=== PATIENT | female | born 1970 | race Caucasian/White ===

== ENCOUNTER → 2022-09-26 09:04 | Outpatient (CLI) | payer BC, SELFPAY ==
--- NOTE | 2022-09-26 09:11 | MR_ITS ---
FINAL REPORT CLINICAL HISTORY: PAIN OF RIGHT KNEE JOINT. PATIENT FELL 3 WEEKS AGO. MEDIAL SIDED KNEE PAIN. COMPARISON: None FINDINGS: Multi planar MR imaging was performed of the right knee. The anterior and posterior cruciate ligaments are intact. The quadriceps and patellar tendons are intact. There is mild increased signal in the posterior horn of the medial meniscus, favor intrasubstance degenerative signal. The lateral meniscus is intact. The medial and lateral collateral ligaments appear intact. The medial and lateral retinacula appear intact. There is no evidence of bone marrow edema or osteochondral defect. No evidence of soft tissue inflammatory reaction. A trace joint effusion is present. IMPRESSION: Mild increased signal posterior horn of medial meniscus, favor intrasubstance degenerative signal. No definite tear is seen. Reviewed, Interpreted and Dictated by Joshua Eastman MD Transcribed by Lori De La Torre Authenticated and . [facility]
== END ==
LOC: RAD 09:04
PROVIDERS: PCP Nurse Practitioner Family; Visit Provider Nurse Practitioner Family
DX: M25.561 Pain in right knee (principal)
CPT/HCPCS: 73721

== ENCOUNTER 2022-11-08 16:30 | Emergency (ER) | payer BC, SELFPAY ==
[2022-11-08] VITALS (11 sets, daily range): BP systolic 108–119; BP diastolic 62–72; PULSE 62–75; RESP 12–20; TEMP 36.7–36.9; O2SAT 96–100; BMI 32.4
--- NOTE | 2022-11-08 16:32 | ECG_ITS ---
APPROVED REPORT Exam: Resting ECG HR:70 bpm ECG Measurements Heart Rate 70 AXES DC 160 P 9 QRSd 102 QRS 34 QT 408 T 20 QTc 428 Conclusion SINUS RHYTHM LOW QRS VOLTAGE IN PRECORDIAL LEADS [QRS DEFLECTION < 1.0 mV IN CHEST LEADS] BORDERLINE ECG UNCONFIRMED REPORT Electronically signed by : Alejo Ortiz MD 11/09/2022 08:48:20
--- NOTE | 2022-11-08 16:42 | XR_ITS ---
PROCEDURE INFORMATION: Exam: XR Chest Exam date and time: 11/08/2022 5:01 PM Age: 52 years old Clinical indication: Sternal or substernal pain; Additional info: Chest pain TECHNIQUE: Imaging protocol: Radiologic exam of the chest. Views: 1 view. COMPARISON: No relevant prior studies available. FINDINGS: Limitations: The patient is wearing a bra which minimally limits the study. Lungs: No evidence of acute pulmonary disease or infiltrates; lung garcia appear clear. Pleural spaces: No evidence of pleural effusion, pneumothorax, or pleural thickening in the visualized pleural spaces. Heart/Mediastinum: No evidence of mediastinal widening or cardiac silhouette enlargement; the mediastinum and heart appear within normal limits for contour and size. Diaphragm: There is elevation of the right hemidiaphragm. Bones/joints: No evidence of acute osseous abnormalities within the visualized portions of the thoracic spine and ribs. Osseous structures appear appropriate for patient age. IMPRESSION: No dense parenchymal consolidation, pleural effusion, or pneumothorax.
[2022-11-08 16:55] LABS: Basophils % 0.4 % (0.1-2.0); Eosinophils # 0.1 K/mm3 (0.0-0.4); Eosinophils % 1.5 % (0.1-12.0); Lymphocytes % 29.6 % (10-50); Mean Corpuscular HGB Conc 32.5 g/dL (31.8-35.4); Mean Corpuscular Hemoglobin 27.8 pg (27.0-31.2); Mean Corpuscular Volume 85.5 fl (81-99); Mean Platelet Volume 8.3 fl (7.4-10.4); Monocytes # 0.3 K/mm3 (0.1-1.0); Monocytes % 4.6 % (1.7-9.3); Neutrophils # 4.2 K/mm3 (1.8-7.8); Neutrophils % 63.9 % (37.0-80.0); Platelet Count 272 K/mm3 (142-424); Red Blood Count 4.68 M/mm3 (4.20-5.40); Red Cell Distribution Width 14.5 % (11.5-17.5); White Blood Count 6.6 K/mm3 (4.8-10.8)
--- NOTE | 2022-11-08 16:58 | HMH.EDGENADL ---
Discharge Plan Disposition Patient Disposition: Home, Self-Care Condition: Good Prescriptions Prescriptions: New nitroglycerin 0.4 mg tablet, sublingual 0.4 mg sublingual Q5M PRN (Reason: chest pain) Qty: 30 0RF Rx Instructions: do not exceed 3 doses per episode Referrals Follow up/Referrals: Provider,Referral, MD [Primary Care Provider] - See instructions Activity Restrictions/Add. Instructions Additional Instructions/Restrictions: Please return to the emergency department if you experience any new or worsening symptoms. Clinical Impressions Clinical Impression: Chest pain Qualifiers: Chest pain type: chest pain due to myocardial ischemia Ischemic chest pain type: stable angina pectoris Qualified Code(s): I20.89 - Other forms of angina pectoris Discharge ED Provider: Isrrael Lowry Adult HPI General Chief complaint: Chest Pain Stated complaint: Chest Pain Time Seen by Provider: 11/08/22 16:41 Mode of Arrival: Ambulatory Source of Information: Patient Limitations: No Limitations Description of Symptoms (Recalled from ER Triage Doc. by RN): pt to ed c/o left sided chest pain. pt reports having a stress test completed this morning. pt denies n/v. pt denies cardiac hx. History of Present Illness HPI narrative: The patient presents with a chief complaint of intermittent chest discomfort for approximately one month. The sensation is located in the middle of the chest and occasionally radiates to the right arm. The patient reports that the discomfort is off and on throughout the day and has been more prominent today. The patient denies any specific triggers for the chest discomfort but notes that it occurs while sitting. They have experienced shortness of breath and cough only after exertion. The patient also reports occasional ankle swelling at the end of the day, which they attribute to being on their feet all day. The patient has no known medical problems and is not currently taking any medications. They deny any history of heart issues and do not smoke. The patient had a stress test this morning, which was scheduled after a recent visit to the ER for chest pain. During that visit, the patient's EKG and labs were normal, and the chest pain resolved after administration of two nitroglycerin tablets. The patient has not taken any nitroglycerin today. They also have an echocardiogram scheduled with a invasive cardiovascular technologist. Related Data Previous Rx's Medication Instructions Recorded nitroglycerin 0.4 mg sublingual 0.4 mg sublingual Q5M PRN chest 11/08/22 tablet pain #30 tabs Allergies Allergy/AdvReac Type Severity Reaction Status Date / Time No Known Allergies Allergy Verified 11/08/22 17:17 [facility] Disclaimer: The information contained in this section may have been updated after the patient was seen, as this information can be updated by other users. Social History Smoking Status: Never smoker alcohol intake: current current occupational status: other Travel in the last 8 weeks: None ROS Obtained: Yes Systems reviewed as appropriate & no additional complaints except as documented Physical Exam General General appearance: alert and in no apparent distress Neck Neck exam: Present normal inspection and full ROM Chest Chest inspection: Present normal inspection and symmetric chest wall rise Respiratory Respiratory exam: Absent respiratory distress Cardiovascular Cardiovascular exam: Present regular rate and normal rhythm Neurological Exam Neurological exam: Present alert and oriented X3 Medical Decision Making Medical Records Medical records reviewed: Yes I reviewed the patient's medical records. Ulises Inquiry Pt receiving controlled substance: No Ulises was queried for this patient: No Vital Signs: 11/08/22 16:45 11/08/22 16:45 11/08/22 17:00 Temperature 98.4 F Temperature Source Oral Pulse Rate 62 75 Pulse Rate [Left Radial] 64 Respiratory Rate 20 13
[2022-11-08 17:06] LABS: Alanine Aminotransferase 19 U/L (12-78); Albumin Level 4.3 g/dl (3.5-5.0); Albumin/Globulin Ratio 1.2 (1.1-1.8); Alkaline Phosphatase 142 U/L (38-126); Anion Gap 11.8 mEq/L (5-15); Aspartate Amino Transferase 23 U/L (14-36); Bilirubin,Total 0.2 mg/dl (0.2-1.3); Blood Urea Nitrogen 14 mg/dl (7-17); Calcium 9.2 mg/dl (8.4-10.2); Carbon Dioxide 33 mmol/L (22.0-30.0); Chloride 100 mmol/L (98-107); Creatinine Clearance Estimated 135 mL/min (50-200); Estimated Glomerular Filt Rate 88 ml/min (>60); GFR (African American) 106 ML/MIN (>60); Globulin 3.5 g/dL (1.3-3.2); Glucose 92 mg/dl (74-100); Potassium 3.8 mmoL/L (3.5-5.1); Sodium 141 mmol/L (136-145); Total Protein,Serum 7.8 g/dl (6.3-8.2)
[2022-11-08 17:39] LABS: Troponin I < 0.01 ng/ml (0.00-0.034)
[2022-11-08 19:41] LABS: Troponin I < 0.01 ng/ml (0.00-0.034)
== END 2022-11-08 20:29 | disposition home or self-care (01) ==
PROVIDERS: Emergency Provider Emergency Medicine; Referring Provider Internal Medicine
DX: I20.89 Other forms of angina pectoris (principal); R07.89 Other chest pain
CPT/HCPCS: 71045; 80053; 84484; 85025; 93005; 99285

== ENCOUNTER 2022-11-09 14:51 | Observation (INO) | payer BC, SELFPAY ==
--- NOTE | 2022-11-09 14:56 | HMH.PHAINT1 ---
Pharmacy Intervention Comments: MEDICATION RECONCILIATION COMPLETED ON PATIENT USING EXTERNAL FILL HISTORY FROM PHARMACY AND LIST FROM ED VISIT YESTERDAY. -SACHA JAIMED
--- NOTE | 2022-11-09 15:05 | PC.NURSE ---
patient walked to floor from admissions
[2022-11-09 15:07] VITALS: BP 143/78; PULSE 66; RESP 18; TEMP 36.9; O2SAT 98; BMI 36.3
--- NOTE | 2022-11-09 15:19 | EXP.HP ---
History of Present Illness *Admission Date: 11/09/22 *Reason for visit:: Chest pressure *History of present illness: Mrs. Lorenzo is a 52-year-old female with significant past family history of coronary artery disease before the age of 50. She presented to cardiology clinic because of onset of chest pressure in the left chest radiating down her left arm. States it is worse with exertion and better with rest. Denies any stabbing or radiation to her back. Has some shortness of breath associated with activity and with her pain. Denies any dizziness or syncope. States the pressure has been getting worse over the past month but most prominent the past few days. Was seen in cardiology clinic yesterday and referred to the ER because of the character of her pain. Work-up in the ER did not show detectable troponin. Patient was discharged home. She had a stress test obtained in outside hospital on Monday but the result is not back from that at this time. Presentation today to the cardiology clinic for persistent pain, significant concern for unstable angina given her family history and character of symptoms. Medicine was consulted for direct admission and further eval in light of patient's symptoms. Complicating her care is a reported IV contrast allergy. She has had hives previously with CT contrast but no shortness of breath, hypotension, anaphylaxis. Stable on room air on evaluation after arriving to the floor. Has any nausea or vomiting. On no home medications. [facility] Disclaimer: The information contained in this section may have been updated after the patient was seen, as this information can be updated by other users. Medical History Abnormal electrocardiogram [ECG] [EKG] Allergic to IV contrast Family history of ischemic heart disease before age 50 Surgical History History of section History of colonoscopy History of hysterectomy Family History Family history of hypertension Mother Father Family history of diabetes mellitus type II Mother Father Social History Smoking Status: Never smoker alcohol intake: current current occupational status: employed and other Travel in the last 8 weeks: None Review of Systems Review of Systems Review of systems (narrative): 14 point review of systems performed, pertinent positives and negatives as per HPI Meds Home Medications and Allergies Home Medications Medication Instructions Recorded Confirmed Type nitroglycerin 0.4 mg sublingual 0.4 mg sublingual Q5MINP PRN chest 11/09/22 11/09/22 History tablet pain New Prescriptions to Start Prescriptions: Allergies Allergy/AdvReac Type Severity Reaction Status Date / Time IV contrast Allergy Severe Hives Uncoded 11/09/22 14:13 PCN Allergy Severe Hives Uncoded 11/09/22 14:13 Exam Data for Last 24 hours Vital signs and Labs for Last 24 Hours: Temp Pulse Resp BP Pulse Ox O2 Del Method 98.4 F 66 18 143/78 H 98 Room Air 11/09/22 15:07 11/09/22 15:07 11/09/22 15:07 11/09/22 15:07 11/09/22 15:07 11/09/22 15:07 I & O for Last 24 hours: Intake & Output 11/06/22 11/07/22 11/08/22 11/09/22 23:59 23:59 23:59 23:59 Weight 102.087 kg Constitutional Constitutional: no acute distress, obese and cooperative *Routine HEENT Exam Head: Present normocephalic Eye: Present EOMI and PERRL ENT: Present mucous membranes moist *Routine Neck Exam Neck: Present supple; Absent lymphadenopathy Routine Chest/Breast/Axilla Exam Chest wall: Present tenderness (Midsternum on palpation; different from reported chest pressure) *Routine Respiratory Exam Respiratory: Present CTA bilaterally *Routine Cardiovascular Exam Cardiovascular: Present RRR *Routine Abdominal Exam Abdominal: Presen
[2022-11-09 15:47] VITALS: PULSE 60
[2022-11-09 16:00] VITALS: PULSE 65
[2022-11-09 16:29] LABS: Hemoglobin A1C 5.1 % (4.0-6.0)
[2022-11-09 16:42] LABS: Thyroid Stimulating Hormone 0.89 uIU/mL (0.465-4.68)
[2022-11-09 18:26] LABS: Troponin I < 0.01 ng/ml (0.00-0.034)
--- NOTE | 2022-11-09 18:44 | PC.NURSE ---
pt pleasant. NSR on tele, npo after midnight for heart cath in am. pt has no needs at this time.
[2022-11-09 19:41] VITALS: BP 118/65; PULSE 68; RESP 18; TEMP 36.9; O2SAT 95
[2022-11-09 20:00] VITALS: PULSE 80
[2022-11-10] VITALS (16 sets, daily range): BP systolic 106–140; BP diastolic 57–82; PULSE 57–92; RESP 16–20; TEMP 36.4–37.3; O2SAT 90–98; BMI 36.1
--- NOTE | 2022-11-10 05:16 | PC.NURSE ---
Patient has had a good night. No other issue noted by patient. Has not complained of chest pain or SOB through the night. No other issues noted
[2022-11-10 06:24] LABS: Basophils % 0.2 % (0.1-2.0); Eosinophils % 0.3 % (0.1-12.0); Hematocrit 42.4 % (37.0-47.0); Hemoglobin 13.7 g/dL (12.2-16.2); Lymphocytes # 1.7 K/mm3 (0.7-4.5); Lymphocytes % 17.2 % (10-50); Mean Corpuscular HGB Conc 32.5 g/dL (31.8-35.4); Mean Corpuscular Hemoglobin 27.5 pg (27.0-31.2); Mean Corpuscular Volume 84.6 fl (81-99); Mean Platelet Volume 8.1 fl (7.4-10.4); Monocytes # 0.3 K/mm3 (0.1-1.0); Monocytes % 3.5 % (1.7-9.3); Neutrophils # 7.7 K/mm3 (1.8-7.8); Neutrophils % 78.8 % (37.0-80.0); Platelet Count 324 K/mm3 (142-424); Red Blood Count 5.01 M/mm3 (4.20-5.40); Red Cell Distribution Width 14.4 % (11.5-17.5); White Blood Count 9.7 K/mm3 (4.8-10.8)
[2022-11-10 06:25] LABS: Chloride 102 mmol/L (98-107); Potassium 4.3 mmoL/L (3.5-5.1); Sodium 141 mmol/L (136-145)
[2022-11-10 06:27] LABS: Alanine Aminotransferase 27 U/L (12-78); Aspartate Amino Transferase 30 U/L (14-36); Blood Urea Nitrogen 12 mg/dl (7-17); Creatinine Clearance Estimated 133 mL/min (50-200); Estimated Glomerular Filt Rate 75 ml/min (>60); GFR (African American) 91 ML/MIN (>60)
[2022-11-10 06:28] LABS: Albumin Level 4.4 g/dl (3.5-5.0); Albumin/Globulin Ratio 1.2 (1.1-1.8); Alkaline Phosphatase 169 U/L (38-126); Anion Gap 14.3 mEq/L (5-15); Bilirubin,Total 0.4 mg/dl (0.2-1.3); Calcium 9.6 mg/dl (8.4-10.2); Carbon Dioxide 29 mmol/L (22.0-30.0); Cholesterol 251 mg/dl (140-200); Globulin 3.7 g/dL (1.3-3.2); Glucose 128 mg/dl (74-100); HDL Cholesterol 50 mg/dl (40-60); Magnesium 2.1 mg/dl (1.6-2.3); Total Protein,Serum 8.1 g/dl (6.3-8.2); Triglycerides 117 mg/dl (30-150); VLDL Cholesterol 23 mg/dL (0-40)
[2022-11-10 06:41] LABS: Direct LDL Cholesterol 132.54 mg/dL (100-129)
--- NOTE | 2022-11-10 08:59 | IR_ITS ---
APPROVED REPORT Patient Location: Inpatient PROCEDURES Left heart catheterization Left ventriculogram Selective coronary angiogram INDICATION Unstable angina, Known family history of coronary disease, Informed consent was obtained prior to the procedure. COMPLICATIONS None Estimated Blood Loss: Less than 10 mls TECHNIQUE One percent lidocaine used to anesthetize the right anterior aspect of the wrist. The right radial artery was accessed via the Seldinger technique. A 6 Danish sheath was placed in the right radial artery. 2.5 mg of Verapamil, 800 mcg of nitroglycerin, 1mg Lidocaine and 5000 U Heparin were given through the arterial sheath. The papa catheter was also used to perform left heart catheterization, left ventriculogram and selective coronary angiogram. At the end of the procedure the sheath was removed good hemostasis was achieved using Traclet band, patient was transferred to the postop holding area in stable condition. ANGIOGRAPHIC RESULTS The left main artery Normal The left anterior descending artery Normal The circumflex artery Normal The right coronary artery Dominant normal The PRITCHETT ventriculogram reveals Normal 65% The left ventricular end-diastolic pressure Normal 10 to 15 mmHg IMPRESSION Normal coronary arteries Normal ejection fraction Normal left ventricular diastolic pressure PLAN 1. Evaluation of noncardiac symptoms Electronically signed by : Stan Johnson MD 11/10/2022 12:26:31
--- NOTE | 2022-11-10 09:29 | EXP.CARD.CON ---
History of Present Illness History of Present Illness Consult date: 11/10/22 Requesting physician: James Almanza Consult reason: chest pain Chief complaint: Chest pain History of present illness: 52-year-old white female without known cardiovascular disease referred to our office earlier this week for complaints of worsening episodic chest discomfort. She describes substernal pressure radiating to her arm worse with activity better with rest. Given the escalation of her symptoms it was recommended she be admitted for left heart cath. She was admitted last night. Stable overnight with no events. Labs and vitals stable. She is agreeable to proceed. [facility] Disclaimer: The information contained in this section may have been updated after the patient was seen, as this information can be updated by other users. Medical History Abnormal electrocardiogram [ECG] [EKG] Allergic to IV contrast Family history of ischemic heart disease before age 50 Surgical History History of section History of colonoscopy History of hysterectomy Family History Mother Family history of diabetes mellitus type II Family history of hypertension Father Family history of diabetes mellitus type II Family history of hypertension Social History Smoking Status: Never smoker alcohol intake: current current occupational status: employed and other Travel in the last 8 weeks: None Review of Systems Constitutional Constitutional: Denies fatigue and Denies weakness Eyes Eyes: Denies loss of vision ENT Ears, Nose, Mouth, and Throat: Denies hearing loss and Denies vertigo *Cardiovascular Cardiovascular: Reports chest pain, Reports dyspnea and Denies syncope *Respiratory Respiratory: Denies cough and Reports dyspnea *Gastrointestinal Gastrointestinal: Denies change in stool character, Denies nausea and Denies vomiting *Musculoskeletal Musculoskeletal: Denies muscle weakness Integumentary/Breasts Skin/Breast: Denies changing lesions *Neurologic Neurologic: Denies loss of vision, Denies syncope, Denies vertigo and Denies weakness Endocrine Endocrine: Denies fatigue Exam Data for Last 24 hours Vital signs and Labs for Last 24 Hours: Temp Pulse Resp BP Pulse Ox O2 Del Method 97.9 F 57 L 16 135/71 98 Room Air 11/10/22 07:14 11/10/22 07:14 11/10/22 07:14 11/10/22 07:14 11/10/22 07:14 11/10/22 07:14 Laboratory Results - last 24 hr 11/09/22 15:58: Hemoglobin A1c 5.1, TSH 0.89 11/09/22 17:50: Troponin I < 0.01 11/10/22 05:55: WBC 9.7 D, RBC 5.01, Hgb 13.7, Hct 42.4, MCV 84.6, MCH 27.5, MCHC 32.5, RDW 14.4, Plt Count 324, MPV 8.1, Neut % (Auto) 78.8, Lymph % (Auto) 17.2, Walsh % (Auto) 3.5, Eos % (Auto) 0.3, Baso % (Auto) 0.2, Neut # (Auto) 7.7, Lymph # (Auto) 1.7, Walsh # (Auto) 0.3, Eos # (Auto) 0.0, Baso # (Auto) 0.0, Sodium 141, Potassium 4.3, Chloride 102, Carbon Dioxide 29, Anion Gap 14.3, BUN 12, Creatinine 0.80, Estimated Creat Clear 133, Estimated GFR 75, Est GFR ( Amer) 91, Glucose 128 H, Calcium 9.6, Magnesium 2.1, Total Bilirubin 0.4, AST 30 D, ALT 27 D, Alkaline Phosphatase 169 H, Total Protein 8.1, Albumin 4.4, Globulin 3.7 H, Albumin/Globulin Ratio 1.2, Triglycerides 117, Cholesterol 251 H, LDL Cholesterol Direct 132.54 H, VLDL Cholesterol 23, HDL Cholesterol 50, Cholesterol/HDL Ratio 5.0 H I & O for Last 24 hours: Intake & Output 11/07/22 11/08/22 11/09/22 11/10/22 23:59 23:59 23:59 23:59 Intake Total 470 / 470 0 / 0 Output Total 0 / 0 0 / 0 Balance 470 / 470 0 / 0 Weight 225 lb 1 oz 225 lb Constitutional Constitutional: no acute distress and cooperative *Routine HEENT Exam Eye: Present PERRL *Routine Respiratory Exam Respiratory: Present CTA bilaterally; Absent accessory musc
--- NOTE | 2022-11-10 11:15 | PC.NURSE ---
pt to computer laboratory technician
--- NOTE | 2022-11-10 13:21 | EXP.DC.SUM ---
General Admission date:: 11/09/22 Discharge date: 11/10/22 HPI HPI HPI: Mrs. Lorenzo is a 52-year-old female with significant past family history of coronary artery disease before the age of 50. She presented to cardiology clinic because of onset of chest pressure in the left chest radiating down her left arm. States it is worse with exertion and better with rest. Denies any stabbing or radiation to her back. Has some shortness of breath associated with activity and with her pain. Denies any dizziness or syncope. States the pressure has been getting worse over the past month but most prominent the past few days. Was seen in cardiology clinic yesterday and referred to the ER because of the character of her pain. Work-up in the ER did not show detectable troponin. Patient was discharged home. She had a stress test obtained in outside hospital on Monday but the result is not back from that at this time. Presentation today to the cardiology clinic for persistent pain, significant concern for unstable angina given her family history and character of symptoms. Medicine was consulted for direct admission and further eval in light of patient's symptoms. Complicating her care is a reported IV contrast allergy. She has had hives previously with CT contrast but no shortness of breath, hypotension, anaphylaxis. Stable on room air on evaluation after arriving to the floor. Has any nausea or vomiting. On no home medications. Hospital Course Hospital Course Hospital Course: 52-year-old female with history of obesity. Significant family history for coronary artery disease. Presents with progressive angina, worse with exertion. Extensive discussion with cardiology, request admission for further work-up and pretreatment prior to elective heart cath.was monitored overnight on telemetry. Intermittent episodes of chest pain overnight. Troponins remain negative. Taken for heart cath with normal coronaries. Stable for discharge home. Recommend close follow-up with PCP for further eval of noncardiac etiology of chest pain. Problems addressed as follows: Unstable angina Chest pain -Patient has been having chest pain with exertion and pressure over the past month. Cardiology was consulted after admission, plan for left heart cath. Taken for procedure with normal coronaries identified. During hospitalization, troponin was negative. EKG with no ST changes. Pain did respond to nitroglycerin. Blood pressure has remained stable. A1c obtained and normal at 5.1, TSH obtained and normal at 0.89. Fasting lipid panel obtained showing LDL cholesterol of 132. Patient needs close follow-up for further work-up of noncardiac etiology for her chest discomfort. ANGIOGRAPHIC RESULTS The left main artery Normal The left anterior descending artery Normal The circumflex artery Normal The right coronary artery Dominant normal The PRITCHETT ventriculogram reveals Normal 65% The left ventricular end-diastolic pressure Normal 10 to 15 mmHg IMPRESSION Normal coronary arteries Normal ejection fraction Normal left ventricular diastolic pressure Stable to discharge home. Spent 30 minutes in discharge counseling, documentation, discussion with consultants, chart review, and direct care with patient. Exam Data for Last 24 hours Vital signs and Labs for Last 24 Hours: Temp Pulse Resp BP Pulse Ox O2 Del Method 99.1 F 58 L 16 116/66 94 L Room Air 11/10/22 12:40 11/10/22 12:40 11/10/22 12:40 11/10/22 12:40 11/10/22 12:40 11/10/22 13:00 Laboratory Results - last 24 hr 11/09/22 15:58: Hemoglobin A1c 5.1, TSH 0.89 11/09/22 17:50: Troponin I < 0.01 11/10/22 05:55: WBC 9.7 D, RBC 5.01, Hgb 13.7, Hct 42.4, MCV 84.6, MCH 27.5, MCHC 32.5, RDW 14.4, Plt Count 324, MPV 8.1, Neut % (Auto) 78.8, Lymph % (Auto) 17.2, Fajardo % (Auto) 3.5, Eos % (Auto) 0.3, Baso % (Auto) 0.2, Neut # (Auto) 7.7, Lymph # (Auto) 1.7, Fajardo # (Auto) 0.3, Eos # (Auto) 0.0, Baso # (Auto) 0.0, S
--- NOTE | 2022-11-11 13:24 | SW/DCPLANNER ---
I spoke w/ this patient regarding hospital discharge. Patient stated that she is feeling much better and is aware of all follow up appointments. Patient did not have any further needs/questions at this time.
== END 2022-11-10 16:10 | disposition home or self-care (01) ==
PROVIDERS: Internal Medicine; Admitting Provider Internal Medicine Adolescent Medicine; PCP Nurse Practitioner Family; Visit Provider Internal Medicine Adolescent Medicine
DX: I20.89 Other forms of angina pectoris (principal); Z91.041 Radiographic dye allergy status; Z82.49 Family history of ischemic heart disease and other diseases of the circulatory system; E66.9 Obesity, unspecified; Z68.36 Body mass index [BMI] 36.0-36.9, adult; E11.9 Type 2 diabetes mellitus without complications
CPT/HCPCS: 36415; 80053; 80061; 83036; 83735; 84443; 84484; 85025; 93458; 99152; C1725; C1769; G0378; J1644; Q9967

== ENCOUNTER → 2022-11-22 09:08 | Outpatient (CLI) | payer BC, SELFPAY ==
--- NOTE | 2022-11-22 | CA_ITS ---
APPROVED REPORT EXAM: Comprehensive 2D, Doppler, and color-flow Echocardiogram Rotoprinter: Rhona Singh RT(R) Ht: 5 ft 6 in Wt: 224lbs BSA: 2.10 BP: 135/71 mmHg Indications: CP, SALGADO, obesity, family history of HD, recent heart cath 2D Dimensions LVOT 1.98 cm (M/F) 1.5-2.5 LVEF (Abernathy's) 65.70 % F: 54 - 74 LV Volume 102.80 mL F: 46 - 106 LV Volume Index 48.95 mL/m2 F: 29 - 61 LA Volume 28.60 mL LA Volume Index 13.62 mL/m2 (M/F) 16-34 M-Mode Dimensions RVDd 3.02 cm (0.9-2.6) LA Diam 3.96 cm (1.9-4.0) LVDd 4.25 cm (3.5-5.7) Ao Diam 2.34 cm (2.0-3.7) LVDs 3.23 cm (3.5-5.7) IVSd 0.85 cm (0.6-1.1) PWd 0.81 cm (0.6-1.1) EF (Teich) 48.10% FS 24.00% EDV (Teich) 80.80 mL ESV (Teich) 41.90 mL LV Diastology E Decel Time 213.00 (160-240 msec) E/A Ratio 1.6 MED E' 8.50 (< 7 cm/sec) E'/MED E' Ratio 13.09 (>14) LAT E' 10.00 (<10 cm/sec) E/LAT E' Ratio 11.13 (>14) Mitral Valve MV E Max Sanjeev. 111.00 (40-130 cm/s) MV A Velocity 69.00 (40-130 cm/s) E/A Ratio 1.60 MV Decel. Time 213.00 (160-240 ms) MV PHT 62.00 ms Left Ventricle The left ventricle is normal size. The left ventricular systolic function is normal. The left ventricular ejection fraction is within the normal range. There is normal left ventricular wall thickness. There is normal LV segmental wall motion. The left ventricular diastolic function is normal. LVEF is 55%. Right Ventricle The right ventricle is normal size. The right ventricular systolic function is normal. Atria The left atrium size is normal. The right atrium size is normal. There is no Doppler evidence of interatrial shunt. Aortic Valve The aortic valve is mildly thickened. There is no aortic valvular stenosis. No aortic regurgitation is present. Mitral Valve The mitral valve is normal in structure. No evidence of mitral valve stenosis. There is no mitral valve regurgitation noted. Tricuspid Valve The tricuspid valve leaflets are thin and pliable. Trace tricuspid regurgitation. There is insufficient TR jet to estimate RVSP. Pulmonic Valve The pulmonary valve is normal in structure. Trace pulmonic regurgitation. Great Vessels The aortic root is normal in size. The ascending aorta is normal in size. IVC is normal in size and collapses >50% with inspiration. Pericardium There is no pericardial effusion. Other Information Study Quality: Adequate Conclusion Normal biventricular systolic function. No significant valvular stenosis or regurgitation. Electronically signed by : Eva Bae MD 11/25/2022 21:42:24
== END ==
PROVIDERS: PCP Nurse Practitioner Family; Visit Provider Nurse Practitioner Family
DX: R06.00 Dyspnea, unspecified (principal)
CPT/HCPCS: 93306

== ENCOUNTER → 2022-12-28 13:36 | Outpatient (CLI) | payer BC, SELFPAY ==
--- NOTE | 2022-12-28 13:39 | US_ITS ---
FINAL REPORT TECHNIQUE: Limited sonographic images of the thyroid were obtained. CLINICAL HISTORY: THYROID NODULE FINDINGS: The right lobe of the thyroid measures 4.7 x 1.5 x 1.7 cm. There is a solid, hypoechoic nodule measuring 8 x 4 x 5 mm consistent with TI-RADS category 4. The left lobe of the thyroid measures 4.6 x 1.4 x 2.0 cm. There is a solid, isoechoic nodule measuring 9 x 8 x 4 mm consistent with TI-RADS category 3. The isthmus measures 0.6 cm. There is a solid, hypoechoic nodule measuring 10 x 6 x 3 mm consistent with TI-RADS category 4. IMPRESSION: Nodules as detailed above. Recommend follow-up in 6-12 months. Reviewed, Interpreted and Dictated by Jonah Chang III, MD Transcribed by [facility] Authenticated and [facility]
== END ==
PROVIDERS: PCP Nurse Practitioner Family; Visit Provider Nurse Practitioner Family
DX: E04.1 Nontoxic single thyroid nodule (principal)
CPT/HCPCS: 76536

== ENCOUNTER 2023-01-03 08:43 | Emergency (ER) | payer BC, SELFPAY ==
[2023-01-03 08:46] VITALS: BP 126/77; PULSE 72; RESP 19; TEMP 36.6; O2SAT 98; BMI 35.5
--- NOTE | 2023-01-03 08:46 | HMH.EDGENADL ---
Discharge Plan Disposition Patient Disposition: Home, Self-Care Condition: Good Prescriptions Prescriptions: New codeine-guaifenesin 10-100 mg/5 mL liquid 5 ml PO Q6H PRN (Reason: allergy symptoms) Qty: 500 0RF No Action nitroglycerin 0.4 mg tablet, sublingual 0.4 mg sublingual Q5MINP PRN (Reason: chest pain) Referrals Follow up/Referrals: Leonard Brumfield APRN [Primary Care Provider] - See instructions Activity Restrictions/Add. Instructions Additional Instructions/Restrictions: Please return to the emergency department if you experience any new or worsening symptoms. Clinical Impressions Clinical Impression: Left-sided thoracic back pain Qualifiers: Chronicity: acute Qualified Code(s): M54.6 - Pain in thoracic spine Stand Alone Forms Stand Alone Forms: Work/School Release Instructions Patient Instructions: Acute Bronchitis, DI for Acute Bronchitis Discharge ED Provider: Isrrael Lowry General Adult HPI General Chief complaint: PAIN Stated complaint: Lt side pain, cough Time Seen by Provider: 01/03/23 08:46 History of Present Illness HPI narrative: The patient presents with a chief complaint of left-sided pain in the ribcage area, which has been present for the last couple of days. The pain is described as sharp and is accompanied by swelling and extreme soreness to touch. The patient reports a history of coughing for the past month but denies any fever, chills, or productive cough. No known lung conditions or other medical conditions are reported. The patient has not experienced any pain during urination, but they do report feeling nauseous due to the pain. The patient has sought medical attention twice for the cough. During the first visit, they were prescribed a Z-Gilberto, an inhaler, and received two shots. During the second visit, they received another shot. The patient did not mention any improvement in their cough after these treatments. There is no reported history of imaging or other diagnostic tests. Related Data Home Medications Medication Instructions Recorded Confirmed nitroglycerin 0.4 mg sublingual 0.4 mg sublingual Q5MINP PRN chest 11/09/22 11/23/22 tablet pain Previous Rx's Medication Instructions Recorded codeine 10 mg-guaifenesin 100 mg/5 5 ml PO Q6H PRN allergy symptoms 01/03/23 mL oral liquid #500 mL Allergies Allergy/AdvReac Type Severity Reaction Status Date / Time Iodinated Contrast Media Allergy Severe Hives Verified 11/23/22 13:11 Penicillins Allergy Severe Hives Verified 11/23/22 13:11 [facility] Disclaimer: The information contained in this section may have been updated after the patient was seen, as this information can be updated by other users. Medical History Abnormal electrocardiogram [ECG] [EKG] Allergic to IV contrast Family history of ischemic heart disease before age 50 FAther-CABG @45 y/o Surgical History History of section History of colonoscopy History of hysterectomy Family History Mother Family history of diabetes mellitus type II Family history of hypertension Father Family history of diabetes mellitus type II Family history of hypertension Social History Smoking Status: Never smoker alcohol intake: current current occupational status: employed and other Travel in the last 8 weeks: None ROS Obtained: Yes Systems reviewed as appropriate & no additional complaints except as documented As per HPI Physical Exam General General appearance: alert and in no apparent distress Head Head exam: atraumatic and normocephalic Eye Eye exam: Present normal appearance Neck Neck exam: Present normal inspection Chest Chest inspection: Present normal inspection, symmetric chest wall rise and tenderness Respir
--- NOTE | 2023-01-03 09:20 | XR_ITS ---
PROCEDURE INFORMATION: Exam: XR Chest Exam date and time: 01/03/2023 9:24 AM Age: 52 years old Clinical indication: Cough and other: L side pain; Additional info: Acute onset L chest wall/axillary pain, HX cough, TECHNIQUE: Imaging protocol: Radiologic exam of the chest. Views: 2 views. COMPARISON: CR XR CHEST PORTABLE 11/08/2022 5:01 PM FINDINGS: Lungs: There is a 4 mm calcified granuloma at the right lung base. There is no focal consolidation. Pleural spaces: Unremarkable. No pleural effusion. No pneumothorax. Heart/Mediastinum: Unremarkable. No cardiomegaly. Bones/joints: Unremarkable. IMPRESSION: No acute cardiopulmonary disease.
[2023-01-03 09:31] VITALS: BP 129/78; PULSE 74; RESP 20; O2SAT 97
[2023-01-03 10:00] VITALS: BP 118/71; PULSE 81; O2SAT 98
--- NOTE | 2023-01-03 10:29 | PC.NURSE ---
DR SERNA AT BEDSIDE TO UPDATE PT AND FAMILY
[2023-01-03 10:30] VITALS: BP 111/73; PULSE 62; RESP 18; O2SAT 95
[2023-01-03 10:33] VITALS: BP 111/73; PULSE 72; RESP 18; TEMP 36.7; O2SAT 96
== END 2023-01-03 10:42 | disposition home or self-care (01) ==
PROVIDERS: Emergency Provider Emergency Medicine; PCP Nurse Practitioner Family
DX: S29.011A Strain of muscle and tendon of front wall of thorax, initial encounter (principal); S29.012A Strain of muscle and tendon of back wall of thorax, initial encounter; J20.9 Acute bronchitis, unspecified; R11.0 Nausea; R05.1 Acute cough; X58.XXXA Exposure to other specified factors, initial encounter; M54.6 Pain in thoracic spine
CPT/HCPCS: 71046; 99283

== ENCOUNTER → 2023-01-25 09:12 | Outpatient (CLI) | payer BC, SELFPAY ==
--- NOTE | 2023-01-25 09:23 | US_ITS ---
FINAL REPORT TECHNIQUE: Ultrasound images of the abdomen were obtained. CLINICAL HISTORY: LT UPPER QUADRANT PAIN COMPARISON: None FINDINGS: The pancreas is unremarkable in appearance. The liver reveals fatty infiltration. The gallbladder contains sludge but no definite stones seen.. The common duct is normal. The right kidney measures 9 cm in length and is normal in echogenicity without hydronephrosis. The left kidney measures 10.8 cm in length and is normal in echogenicity without hydronephrosis. The spleen is unremarkable. The aorta is normal in caliber. The vena cava is unremarkable. IMPRESSION: Sludge is present in the gallbladder without evidence of biliary ductal dilatation. Fatty infiltration of the liver. Reviewed, Interpreted and Dictated by Joshua Eastman MD Transcribed by Lori De La Torre Authenticated and . [facility]
== END ==
PROVIDERS: PCP Nurse Practitioner Family; Visit Provider Nurse Practitioner Family
DX: R07.81 Pleurodynia (principal); R10.12 Left upper quadrant pain
CPT/HCPCS: 76700

== ENCOUNTER 2023-09-13 13:45 | Outpatient (CLI) | payer BC, SELFPAY ==
--- NOTE | 2023-09-13 13:59 | US_ITS ---
FINAL REPORT CLINICAL HISTORY: .epigastric pain FINDINGS: RIGHT UPPER QUADRANT ULTRASOUND Sonographic images of the right upper quadrant were obtained. The pancreas is partially obscured.The liver has an unremarkable appearance. There are multiple small stones in the gallbladder without well-defined shadowing. The common duct measures 3 mm. Limited images of the right kidney are normal. IMPRESSION: Multiple small stones in the gallbladder. Reviewed, Interpreted and Dictated by Jonah Chang III, MD Transcribed by [facility] Authenticated and [facility]
== END 2023-09-13 23:59 | disposition home or self-care (01) ==
LOC: RAD 13:45
PROVIDERS: PCP Nurse Practitioner Family; Visit Provider Nurse Practitioner Family
DX: R10.13 Epigastric pain (principal); K80.20 Calculus of gallbladder without cholecystitis without obstruction
CPT/HCPCS: 76705

== ENCOUNTER 2023-10-06 13:27 | Outpatient (CLI) | payer BC, SELFPAY ==
--- NOTE | 2023-10-06 13:36 | US_ITS ---
FINAL REPORT TECHNIQUE: Sonographic images of the thyroid were obtained. CLINICAL HISTORY: NODULE COMPARISON: 12/28/2022 FINDINGS: THYROID ULTRASOUND The right lobe of the thyroid measures 3.6 x 1.5 x 1.6 cm. The left lobe of the thyroid measures 3.8 x 1.2 x 1.7 cm. The isthmus measures 5 mm. The thyroid demonstrates a nodular parenchyma bilaterally. There is a focus in the right upper lobe which extends into the isthmus measuring 7 mm in greatest dimension. This previously measured 5 mm. Previously noted nodule in the left lobe of the thyroid is not seen on this exam. A TI-RADS 3 lesion previously noted in the right lobe of the thyroid is less well-seen than on the previous exam. IMPRESSION: Slight increase in size of focus in the right upper lobe which extends into the isthmus now measuring 7 mm in greatest dimension. This lesion is consistent with a TI-RADS 4 nodule. FNA is recommended for further evaluation. Reviewed, Interpreted and Dictated by Joshua Eastman MD Transcribed by Jessy Haas Authenticated and [facility]
== END 2023-10-06 23:59 | disposition home or self-care (01) ==
LOC: RAD 13:28
PROVIDERS: PCP Nurse Practitioner Family; Visit Provider Nurse Practitioner Family
DX: E04.1 Nontoxic single thyroid nodule (principal)
CPT/HCPCS: 76536

== ENCOUNTER 2023-10-27 09:56 | Outpatient (CLI) | payer BC, SELFPAY ==
--- NOTE | 2023-10-27 10:01 | US_ITS ---
FINAL REPORT CLINICAL HISTORY: TYLER KAMARA -- RT SIDE NODULE FINDINGS: Ultrasound guided thyroid biopsy. HISTORY: Right thyroid nodule. Attending radiologist: Dr. Eastman Physician Appellate Court Judge: Tyler Shaw PA-C PROCEDURE: After informed consent was obtained and a time-out was performed, the patient was prepped and draped in usual sterile fashion over the right neck. Utilizing local anesthesia and sterile technique with a 25-gauge needle, access to lesion was obtained under direct thyroid guidance. Three passes were made under direct ultrasound guidance. The patient received no conscious sedation. The patient tolerated procedure well and left the department in good condition. IMPRESSION: Status post ultrasound guided biopsy of thyroid without immediate complication. Films reviewed, interpreted and dictated by Dr. Eastman. Transcribed by Tyler Shaw PA-C. Reviewed, Interpreted and Dictated by Joshua Eastman MD Transcribed by ANH Conroy Authenticated and . [facility]
== END 2023-10-27 23:59 | disposition home or self-care (01) ==
LOC: RAD 09:57
PROVIDERS: PCP Nurse Practitioner Family; Visit Provider Nurse Practitioner
DX: E04.1 Nontoxic single thyroid nodule (principal)
CPT/HCPCS: 10005

== ENCOUNTER 2023-12-13 07:55 | Outpatient (CLI) | payer BC, SELFPAY | END 2023-12-13 23:59 | disposition home or self-care (01) | LOC: RAD 07:56 | PROVIDERS: PCP Nurse Practitioner Family; Visit Provider Nurse Practitioner Family | DX: M54.2 Cervicalgia (principal) ==

== ENCOUNTER 2023-12-27 12:37 | Outpatient (CLI) | payer BC, SELFPAY ==
--- NOTE | 2023-12-27 12:42 | MR_ITS ---
FINAL REPORT CLINICAL HISTORY: NECK PAIN CERVICLGIA, PAIN WHEN TURNING HEAD TO THE LEFT. LEFT SIDED NECK PAIN COMPARISON: None FINDINGS: Multi planar MR imaging was obtained of the cervical spine. There is abnormal decreased signal throughout the cervical discs. There is mild loss of disc The vertebrae are of normal height. There is no malalignment. The cervical cord demonstrates normal signal and configuration. C2-C3: There is no evidence of significant disc bulge or protrusion. There is no significant facet hypertrophy. C3-C4: There is a mild annular bulge present with endplate hypertrophy eccentric to the left, producing moderate left neural foraminal narrowing. C4-C5: A moderate bulge is present with endplate hypertrophy, moderate to severe bilateral neural foraminal narrowing, and a small midline disc protrusion. C5-C6: There is a moderate annular bulge present with a small midline disc protrusion, endplate hypertrophy, and moderate to severe bilateral neural foraminal narrowing. C6-C7: There is a mild annular bulge present without evidence of significant canal stenosis or neural foraminal narrowing. C7-T1: There is no evidence of significant disc bulge or protrusion. There is no significant facet hypertrophy. IMPRESSION: Multilevel mild to moderate degenerative change is present in the cervical spine, most severe at the C4-5 and C5-6 levels. Reviewed, Interpreted and Dictated by Joshua Eastman MD Transcribed by Lori De La Torre Authenticated and [facility]
== END 2023-12-27 23:59 | disposition home or self-care (01) ==
LOC: RAD 12:38
PROVIDERS: PCP Nurse Practitioner Family; Visit Provider Nurse Practitioner Family
DX: M54.2 Cervicalgia (principal)
CPT/HCPCS: 72141